=== PATIENT | female | born 1965 | race Caucasian/White ===

== ENCOUNTER 2016-09-03 10:48 | Emergency (ER) | payer SELFPAY ==
[2016-09-03 10:48] VITALS: BMI 30.7
[2016-09-03 11:02] VITALS: TEMP 97.6
[2016-09-03] MEDS ORDERED: HYDROmorphone 1 MG INJECTION IV ONE (11:17)
[2016-09-03] MEDS ORDERED: ONDANSETRON HCL 4 MG/2 ML VIAL IV ONE (11:17)
[2016-09-03] MEDS ORDERED: NS 1,000 ML IV ONE (11:17)
--- NOTE | 2016-09-03 11:19 | EDPRACDOC ---
- General Information Chief Complaint: Abdominal Pain Stated Complaint: ABD PAIN Time Seen by Provider: 09/03/16 11:15 Information Source: Patient Mode Of Arrival: Car Home Medications: Home Medications Amitriptyline HCl [Elavil] 100 mg PO HS 07/05/12 Fluoxetine [Prozac] 20 mg PO DAILY 07/05/12 Tizanidine HCl [Zanaflex] 4 mg PO BID 02/03/16 Cephalexin Monohydrate [Keflex] 500 mg PO Q6H #28 cap 08/24/16 Cyclobenzaprine HCl [Flexeril] 10 mg PO TID #21 tab 08/24/16 Gabapentin 300 mg PO TID 08/24/16 Hydrocodone Bit/Acetaminophen [Foley 5-325 Tablet] 1 each PO Q4H #10 tab Prednisone [Deltasone, Orasone] 2 tabs PO DAILY #20 tab 08/24/16 Levofloxacin [Levaquin] 750 mg PO DAILY #10 tab 09/03/16 Oxycodone HCl/Acetaminophen [Percocet 5-325 mg Tablet] 1 each PO Q4 #30 tablet 09/03/16 Promethazine [Phenergan] 25 mg PO Q8H PRN #30 tab 09/03/16 Allergies/Adverse Reactions: Allergies Allergy/AdvReac Type Severity Reaction Status Date / Time Sulfa (Sulfonamide Allergy Severe Hives* Verified 08/24/16 12:28 Antibiotics) [Sulfa(Sulfonamide Antibiotics)] - History of Present Illness Onset: 3 days HPI: PATIENT PRESENTS WITH 3 DAYS DIFFUSE ABDOMINAL PAIN. NO FEVER. NO N/V. MILD DIARRHEA Pain Location: Reports: Diffuse Pain Context: Reports: Spontaneous Pain Severity: Mild Pain Quality: Reports: Aching Last Menstrual Period: post luciano : No Adult Abdominal History: Reports: Abdominal Surgery (TUBAL) Modifying Factors: improves with: Nothing Female Associated Signs & Symptoms: Reports: Diarrhea. Denies: Nausea, Vomiting Oral Intake: Normal Urinary Output: Normal - Treatment Prior to ED Arrival Reported Medications/Treatment SEL[employer] Medications SEL[employer] SE[employer]ING [employer] (Medication/ Percocet 1 last night Dose/Time) ED Past Medical History - History Reviewed Yes Nurses notes reviewed and agree except as marked Travel Outside of [place] in the Last 3 Months?: No - Patient Medical History Cardiac History: Reports: Valvular Heart Disease. Denies: Hypertension Respiratory History: Reports: COPD, Chronic Bronchitis, Emphysema GI/ History: Reports: Gastroesophageal Reflux Musculoskeletal History: Reports: Osteoarthritis Psychological History: Reports: Depression, Anxiety Surgical History: Reports: Other (back x 2 , CARPAL TUNNEL, BTL) - Family Medical History Reports: Hypertension (MOTHER AND FATHER), Stroke (MOTHER), Cardiac Disorders, Respiratory Disorders - Social Medical History Smoking Status: Heavy tobacco smoker (5 or more cigarettes/day or daily pipe/ cigar) ETOH: None Substance Abuse: None Lives With: Family Lives In: Home EDM Review of Systems - Review of Systems ROS Negative Except as Marked: Yes All systems reviewed and were negative except as marked Constitutional: No Symptoms Reported. negative: Fever, Chills, Weakness, Fatigue, Loss of Appetite Eyes: No Symptoms Reported. negative: Redness, Blurred Vision, Double Vision, Discharge, Pain, Light Sensitive, Photophobia Ears: No Symptoms Reported. negative: Pain, Hearing Loss, Drainage, Ear Pulling Throat: No Symptoms Reported. negative: Pain, Swelling Nose: No Symptoms Reported. negative: Congestion, Bleeding, Discharge, Injection, Swelling, Deformity, Ecchymosis, Tender, Abrasion, Laceration Mouth: No Symptoms Reported. negative: Pain, Drooling Respiratory: No Symptoms Reported. negative: Cough, Brassy Cough, Barky Cough, Shortness of Breath, Wheezing, Hemoptysis Cardiovascular: No Symptoms Reported. negative: Chest Pain, Palpitations, Syncope, Edema, Orthopnea, PND, Skin Mottling, Cyanosis Gastrointestinal: Pain. negative: Constipation, Diarrhea, Formula Intolerance, Melena, Nausea, Vomiting Genitourinary: No Symptoms Reported. negative: Dysuria, Hematuria, Frequency, Discharge, Bleeding, Testicular Pain, Neurological: No Symptoms Reported. negative: Headache, Dizziness, Seizure, Numbness, Weakness, Speech Difficulty, Gait Difficulty Musculoskeletal: No Symptoms Reported. negative: Neck, Chestwall, Ribs, Back, Shoulder, Arm, Elbow, Forearm, Wrist, Hand, Pelvis, Hip, Femur, Knee, Leg, Ankle , Foot Integumentary: No Symptoms Reported. negative: Itching, Rash, Bruising, Wound Allergic/Immunologic: No Symptoms Reported. negative: Hives, Itching Hematologic: No Symptoms Reported. negative: Lymphadenopathy, Easy Bruising, Easy Bleeding Endocrine: No Symptoms Reported. negative: Weight Gain, Weight Loss Psychiatric: No Symptoms Reported. negative: Anxiety, Depression, Hallucinations, Insomnia, Suicidal - Physical Exam Constitutional: Alert (Awake), No apparent distress Oriented to: Time, Person, Place Last recorded Vital Signs: Last Vital Signs Temp 97.6 F 09/03/16 10:59 Pulse 80 09/03/16 12:00 Resp 18 09/03/16 12:00 BP 125/71 09/03/16 12:00 Pulse Ox 95 09/03/16 12:00 Oxygen Pulse Oxygen Saturation 95 O2 Device Room Air Oxygen Flow Rate Fraction of Inspired Oxygen ( FIO2) - HEENT Head: Normal ( normocephalic) Eye Exam: Normal (PERRL, EOMI, Sclera white) Oropharynx: Normal (Pharynx:Moist without exudate,Gums-no swelling) Tympanic Membrane: Normal ENT EAC: Normal TMJ: Normal Nose: No Symptoms Reported (septum midline) Neck: Normal (FROM, trachea at midline) - Respiratory/Cardiovascular Respiratory: Normal - CTA (BBS clear to auscultation without adventitious sounds ) Cardiovascular: Normal (RRR without murmur, gallop or rub) - GI Auscultation: Normal (NABS) Palpation: Normal (Soft,No rebound or guarding, non distended) Tenderness: Non tender Hickey's Sign: Negative - Musculoskeletal Back: Normal (Non-Tender) Extremities: Normal (Normal tone, Pulses 2+ No cyanosis or edema, FROM) - Integumentary Skin: Normal, Warm, Dry Lymphatics: Normal (no adenopathy) - Neurologic Memory Impaired: Normal Motor Function: Normal (Normal tone, Pulses 2+ No cyanosis or edema, FROM) Cranial Nerve: Normal (CN II-X11 intact sensation, strength 5/5) Cerebellar: Normal Mood Description: Normal Perception: Normal - Results 09/03/16 11:33 09/03/16 11:33 WBC 9.8 xk/uL (3.8-10.8) 09/03/16 11:33 RBC 4.89 xM/uL (4.20-5.40) 09/03/16 11:33 Hgb 15.1 g/dL (12.0-16.0) 09/03/16 11:33 Hct 44.3 % (36-47) 09/03/16 11:33 MCV 91 fL (81-99) 09/03/16 11:33 MCH 30.8 pg (27-32) 09/03/16 11:33 MCHC 34.1 g/dl (33-36) 09/03/16 11:33 RDW 14.8 % (11.5-14.5) H 09/03/16 11:33 Plt Count 268 xk/uL (130-400) 09/03/16 11:33 MPV 8.6 fL (7.4-10.4) 09/03/16 11:33 Neut % (Auto) 66.7 % (45-76) 09/03/16 11:33 Lymph % (Auto) 18.2 % (17-44) 09/03/16 11:33 [place] % (Auto) 12.3 % (3-10) H 09/03/16 11:33 Eos % (Auto) 1.2 % (0-5) 09/03/16 11:33 Baso % (Auto) 1.6 % (0-2) 09/03/16 11:33 Absolute Neuts (auto) 6.47 xk/uL (1.7-8.2) 09/03/16 11:33 Absolute Lymphs (auto) 1.76 xk/uL (0.65-4.75) 09/03/16 11:33 Sodium 139 mEq/L (137-146) 09/03/16 11:33 Potassium 3.6 mEq/L (3.5-5.1) 09/03/16 11:33 Chloride 102 mEq/L (98-107) 09/03/16 11:33 Carbon Dioxide 27 mMOL/L (22-33) 09/03/16 11:33 Anion Gap 14 mEq/L (8-16) 09/03/16 11:33 BUN 12 MG/DL (7-17) 09/03/16 11:33 Creatinine 0.70 MG/DL (0.52-1.04) 09/03/16 11:33 Estimated GFR (MDRD) > 60 mL/min (>=60) 09/03/16 11:33 Glucose 110 MG/DL (70-99) H 09/03/16 11:33 Calculated Osmolality 269 MOs/Kg (270-290) L 09/03/16 11:33 Calcium 9.1 MG/DL (8.4-10.2) 09/03/16 11:33 Corrected Calcium 9.6 MG/DL (8.4-10.2) 09/03/16 11:33 Total Bilirubin 0.5 MG/DL (0.2-1.3) 09/03/16 11:33 AST 27 IU/L (14-36) 09/03/16 11:33 ALT 22 IU/L (9-52) 09/03/16 11:33 Alkaline Phosphatase 85 IU/L (38-126) 09/03/16 11:33 Total Protein 7.0 G/DL (6.3-8.2) 09/03/16 11:33 Albumin 3.5 G/DL (3.5-5.0) 09/03/16 11:33 Lipase 32 U/L (23-300) 09/03/16 11:33 Lab Results 09/03/16 09/03/16 11:33 11:33 WBC 9.8 RBC 4.89 Hgb 15.1 Hct 44.3 MCV 91 MCH 30.8 MCHC 34.1 RDW 14.8 H Plt Count 268 MPV 8.6 Neut % (Auto) 66.7 Lymph % (Auto) 18.2 [place] % (Auto) 12.3 H Eos % (Auto) 1.2 Baso % (Auto) 1.6 Absolute Neuts (auto) 6.47 Absolute Lymphs (auto) 1.76 Sodium 139 Potassium 3.6 Chloride 102 Carbon Dioxide 27 Anion Gap 14 BUN 12 Creatinine 0.70 Estimated GFR (MDRD) > 60 Glucose 110 H Calculated Osmolality 269 L Calcium 9.1 Corrected Calcium 9.6 Total Bilirubin 0.5 AST 27 ALT 22 Alkaline Phosphatase 85 Total Protein 7.0 Albumin 3.5 Lipase 32 - Departure Yes I personally saw and evaluated the patient. Disposition: Home Condition: Good Final Diagnosis: Diverticulitis Qualifiers: Diverticulitis site: large intestine Diverticulitis bleeding: without bleeding Diverticulitis complication: without perforation or abscess Qualified Code(s): K57.32 - Diverticulitis of large intestine without perforation or abscess without bleeding Instructions: Diverticulitis (ED) Education/Counseling Given To: Patient Education/Counseling Given Regarding: Diagnosis, Treatment, Prognosis, Follow Up Prescriptions: Levofloxacin [Levaquin] 750 mg PO DAILY #10 tab Oxycodone HCl/Acetaminophen [Percocet 5-325 mg Tablet] 1 each PO Q4 #30 tablet Promethazine [Phenergan] 25 mg PO Q8H PRN #30 tab PRN Reason: Nausea/Vomiting
[2016-09-03 11:43] LABS: AUTOMATED BASOPHIL 1.6 % (0-2); AUTOMATED EOSINOPHIL 1.2 % (0-5); AUTOMATED LYMPH 18.2 % (17-44); AUTOMATED MONOCYTE 12.3 % (3-10); AUTOMATED NEUTROPHIL 66.7 % (45-76); MPV 8.6 fL (7.4-10.4)
[2016-09-03] MEDS ORDERED: Pharmacy Review for Metformin - IV Contrast Given SCH (12:00)
[2016-09-03 12:02] LABS: BLOOD UREA NITROGEN 12 MG/DL (7-17); CALC CORRECTED 9.6 MG/DL (8.4-10.2); CALCIUM 9.1 MG/DL (8.4-10.2); CALCULATED OSMOLALITY 269 MOs/Kg (270-290); CHLORIDE 102 mEq/L (98-107); GLUCOSE 110 MG/DL (70-99); SODIUM LEVEL 139 mEq/L (137-146)
--- NOTE | 2016-09-03 12:33 | DIRPT ---
CLINICAL DATA: Diffuse abdominal pain for 3 days with mild diarrhea EXAM: CT ABDOMEN AND PELVIS WITH CONTRAST TECHNIQUE: Multidetector CT imaging of the abdomen and pelvis was performed using the standard protocol following bolus administration of intravenous contrast. CONTRAST: 80 mL Isovue 370 nonionic COMPARISON: April 07, 2006 FINDINGS: Lower chest: There is slight bibasilar lung atelectatic change. Lung bases otherwise are clear. Hepatobiliary: There is a 3 mm probable cyst in the medial segment of the left lobe liver. No other focal liver lesions are date fall head. Gallbladder wall is not appreciably thickened. There is no biliary duct dilatation. Pancreas: No pancreatic mass or inflammatory focus. Spleen: No splenic lesions are identified. Adrenals/Urinary Tract: Adrenals appear normal bilaterally. Kidneys bilaterally show no mass or hydronephrosis on either side. There is no renal or ureteral calculus on either side. Urinary bladder is midline with wall thickness within normal limits. Stomach/Bowel: There are multiple sigmoid diverticula. There is localized wall thickness with surrounding mesenteric thickening at the junction of the mid to distal sigmoid colon consistent with diverticulitis. There is no abscess or evidence of perforation in this region. There is no other bowel wall or mesenteric thickening. Note that more proximally in the sigmoid colon, there are multiple uncomplicated diverticula. There is no bowel obstruction. No free air or portal venous air. Vascular/Lymphatic: There is atherosclerotic change in the aorta and common iliac arteries. There is also moderate calcification in both internal iliac arteries. There is no abdominal aortic aneurysm. The major mesenteric vessels appear patent. There is no adenopathy in the abdomen or pelvis. Reproductive: Uterus is anteverted. There is no pelvic mass. There is a small amount of free fluid in the right cul-de-sac region. Other: Appendix appears normal. There is no abscess in the abdomen or pelvis. Musculoskeletal: There is degenerative change in the lumbar spine. There are no blastic or lytic bone lesions. There is no intramuscular or abdominal wall lesion. IMPRESSION: Diverticulitis at the junction of mid and distal aspects of the sigmoid colon. No abscess or perforation in this area. There is diverticulosis throughout the remainder of the sigmoid colon. No bowel obstruction. No abscess elsewhere in the abdomen or pelvis. Appendix appears normal. Small amount of free fluid in the right cul-de-sac region. While this fluid could be sympathetic in etiology due to the diverticulitis, this finding also could indicate recent ovarian cyst rupture. No renal or ureteral calculus. No hydronephrosis. Electronically Signed By: Varghese Oro III, M.D. On: 09/03/2016 12:30
[2016-09-03] MEDS ORDERED: LEVOFLOXACIN 750 MG TAB PO ONE (12:45)
[2016-09-03 13:08] VITALS: BP 114/62; PULSE 78
[2016-09-03] MEDS ORDERED: FLUCONAZOLE 150 MG TAB PO ONE (13:08)
== END 2016-09-03 13:13 | disposition home or self-care (01) ==
LOC: ED 10:48
DX: K57.32 Diverticulitis of large intestine without perforation or abscess without bleeding (principal)
CPT/HCPCS: 36415; 74177; 80053; 83690; 85025; 96361; 96374; 96375; 99284; A9698; J1170; J2405; J3490